=== PATIENT | female | born 1980 | race Caucasian/White ===

== ENCOUNTER 2019-10-08 16:25 | Emergency (ER) | payer OTHER, SELFPAY ==
[2019-10-08 16:34] VITALS: BP 154/110; PULSE 94; RESP 18; TEMP 37.1; O2SAT 100
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
[2019-10-08 17:00] VITALS: BP 156/110
--- NOTE | 2019-10-08 17:06 | ECG_ITS ---
Measurements Intervals [place] Rate: 88 P: 31 GA: 138 QRS: 21 QRSD: 96 T: 14 QT: 342 QTc: 414 Interpretive Statements SINUS RHYTHM BASELINE ARTIFACT- II, III, AVF NORMAL ECG Electronically Signed On 10-08-2019 17:27:58 CDT by Hawk Golden D.O.
== END 2019-10-08 17:10 | disposition short-term general hospital (02) ==
PROVIDERS: Emergency Provider Nurse Practitioner; PCP Family Medicine
DX: M54.2 Cervicalgia (principal); N28.9 Disorder of kidney and ureter, unspecified; Z87.440 Personal history of urinary (tract) infections; Z87.891 Personal history of nicotine dependence; R03.0 Elevated blood-pressure reading, without diagnosis of hypertension
CPT/HCPCS: 93005; 99213; G0463

== ENCOUNTER 2019-10-08 17:30 | Emergency (ER) | payer OTHER, SELFPAY ==
[2019-10-08 17:34] VITALS: BP 170/110; PULSE 102; RESP 18; TEMP 36.8; O2SAT 100
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
[2019-10-08 18:38] VITALS: BP 168/64; PULSE 100; RESP 18; O2SAT 100
[2019-10-08] MEDS: KETOROLAC 30 MG/ML VIAL (*BKC) IV PUSH (18:40)
[2019-10-08 18:45] VITALS: BP 162/79; PULSE 103; RESP 18; O2SAT 98
== END 2019-10-08 18:55 | disposition home or self-care (01) ==
PROVIDERS: Emergency Provider Emergency Medicine; PCP Family Medicine
DX: M43.6 Torticollis (principal); N28.9 Disorder of kidney and ureter, unspecified; Z87.440 Personal history of urinary (tract) infections; Z87.891 Personal history of nicotine dependence
CPT/HCPCS: 93005; 96374; 96375; 99284; A9270; J1100; J1885; J3360

== ENCOUNTER 2019-10-13 11:05 | Outpatient (CLI) | payer OTHER, SELFPAY ==
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
== END 2019-10-13 11:06 | disposition home or self-care (01) ==
LOC: ANHIMG 11:08
PROVIDERS: PCP Family Medicine; Visit Provider Family Medicine
DX: M54.2 Cervicalgia (principal)
CPT/HCPCS: 72040

== ENCOUNTER 2020-01-31 11:06 | Emergency (ER) | payer OTHER, SELFPAY ==
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
--- NOTE | 2020-01-31 11:10 | ED.LOWEXIN ---
HPI - Extremity Injury (Lower) General Chief Complaint: Extremity Injury, Lower Stated Complaint: L/ankle pain Time Seen by Provider: 01/31/20 11:10 Source: patient and RN notes reviewed History of Present Illness HPI Narrative: Patient is a 40-year-old female who presents the urgent care with complaints of left lateral foot pain and left lateral ankle pain. Patient states that 1 month ago she believes she stepped on it wrong and rolled the ankle . Patient states that at that time it was fairly swollen and bruised and she was using ice, elevation and ibuprofen as needed for comfort. Patient states that slightly improved but when she started helping her mother move furniture the last 2 weeks in a row, it seems to be bothering her again with increased swelling after being on her feet. 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 Patient denies of any other acute complaints or injuries. No acute distress noted. Patient aware of the plan of care. Some parts of this dictation were generated by voice recognition software and may contain typographical and/or grammatical inaccuracies. Related Data Allergies Allergy/AdvReac Type Severity Reaction Status Date / Time propoxyphene Allergy Intermediate Hives Verified 11/19/19 14:31 [From Darvocet-N] varenicline [From Chantix] AdvReac Intermediate Palpitation Verified 11/19/19 14:31 s Review of Systems Review of Systems: Narrative: CONSTITUTIONAL: Denies fever, chills, or sweats. EYES: Denies visual changes, redness, or discharge. ENT: Denies rhinorrhea, congestion, sore throat, or otalgia. CARDIOVASCULAR: Denies chest pain, palpitations, or edema. RESPIRATORY: Denies cough or dyspnea. GASTROINTESTINAL: Denies abdominal pain, nausea, vomiting, or diarrhea. GENITOURINARY: Denies dysuria or hematuria. SKIN: Denies rash or itching. MUSCULOSKELETAL: Reports of left lateral foot and ankle pain with swelling NEUROLOGIC: Denies headache, numbness, or weakness. All other systems reviewed are negative, except as documented in HPI. [facility] Past Medical History Medical History (Updated 01/31/20 @ 11:52 by CAMLIA Ho) Renal disease Seasonal allergies UTI (urinary tract infection) Surgical History Surgical History History of sinus surgery removing polyps Hx of cholecystectomy Family History Family History Father Hypertension Family history of rheumatoid arthritis Family history of cardiovascular disease Grandparent Family history of cardiovascular disease Social History Social History Smoking packs per day: 0.5 Smoking cigarettes per day: 10.0 Smoking status: Current every day smoker Tobacco type: cigarettes Second hand tobacco smoke exposure: No Alcohol intake: never Substance use: never Gender identity (if verbalized by the patient): Female Spiritual care concerns: No Agree to blood products: Yes Comments At the time of my signature, I reviewed and agree with the nursing past medical, surgical, social, and family history. There is no relevant family history pertinent to the patient complaint. Exam Narrative: Exam Narrative: GENERAL: This is a well-nourished, well-developed patient, in no apparent distress. HEAD: normocephalic, atraumatic. EYES: PERRL. Sclera clear/white. Vision is grossly intact. EARS: External ears normal NOSE: External nose normal with no obvious nasal discharge, nares without redness, no rhinorrhea. THROAT: Mucous membranes moist SKIN: warm, intact with no suspicious lesions or rash, good texture and turgor. NEURO: awake, alert, and oriented to person, place and time. There were no obvious focal neurologic abnormalities. EXTREMITIES: Mild edema without ecchymosis, or erythema noted to the left lateral
[2020-01-31 11:16] VITALS: BP 169/104; PULSE 93; RESP 18; TEMP 36.9; O2SAT 100
== END 2020-01-31 11:56 | disposition home or self-care (01) ==
PROVIDERS: Emergency Provider Nurse Practitioner Family; PCP Family Medicine
DX: S93.402A Sprain of unspecified ligament of left ankle, initial encounter (principal); S96.912A Strain of unspecified muscle and tendon at ankle and foot level, left foot, initial encounter; X50.9XXA Other and unspecified overexertion or strenuous movements or postures, initial encounter; S93.692A Other sprain of left foot, initial encounter; F17.210 Nicotine dependence, cigarettes, uncomplicated
CPT/HCPCS: 73610; 73630; 99213; G0463